=== PATIENT | male | born 1965 | race African-American/Black ===

== ENCOUNTER → 2020-07-12 | Outpatient (CLI) | payer OTHER ==
--- NOTE | 2020-07-12 14:28 | RADIOLOGY REPORT (SQ) ---
EXAM DESCRIPTION: VENOUS UNILATERAL LOWER IMAGES COMPLETED DATE/TIME: 07/12/2020 1:57 pm REASON FOR STUDY: LLE LT POP V DVT, SWELLING I80.222 PHLEBITIS AND THROMBOPHLEBITIS OF LEFT POPLITE AL VEI COMPARISON: None. TECHNIQUE: Dynamic and static wolf scale and color images acquired of the left leg venous system. Se lected spectral images acquired with additional compression and augmentation maneuvers. The contralat eral common femoral vein and saphenofemoral junction were also imaged. Images stored on PACS. LIMITATIONS: None. FINDINGS: COMMON FEMORAL: Normal phasicity, compression and augmentation. No visualized echogenic ma terial on wolf scale. No defects on color images. FEMORAL: Normal compression and augmentation. No visualized echogenic material on wolf scale. No defe cts on color images. POPLITEAL: Normal compression, augmentation. No visualized echogenic material on wolf scale. No defec ts on color images. CALF VESSELS: Normal compression, augmentation. No visualized echogenic material on wolf scale. No de fects on color images. GSV and SSV: Normal compression, augmentation. No visualized echogenic material on wolf scale. No def ects on color images. ANY DEEP VENOUS INSUFFICIENCY: Not evaluated. ANY EVIDENCE OF POPLITEAL CYST: No. OTHER: No other significant finding. CONTRALATERAL COMMON FEMORAL VEIN AND SAPHENOFEMORAL JUNCTION: Normal phasicity, compression and augmentation. No visualized echogenic material on wolf scale. No de fects on color images. IMPRESSION: NO EVIDENCE DVT OR SVT IN THE LEFT LEG. TECHNICAL DOCUMENTATION: JOB ID: [id number] 2010 [employer] All Rights Reserved Reading location - IP/workstation name: [email or web address]
== END ==
LOC: SP 12:44 → EDBD 13:00
PROVIDERS: ATTEND Family Medicine
DX: I80.222 Phlebitis and thrombophlebitis of left popliteal vein (principal)
CPT/HCPCS: 93971